=== PATIENT | female | born 1990 | race Two or more races ===

== ENCOUNTER 2017-05-24 13:16 | Emergency (ER) | payer OTHER ==
[~2017-05-24] VITALS: Ht 154.9 cm; Wt 71.7 kg
[2017-05-24 13:39] VITALS: BP 111/63
--- NOTE | 2017-05-24 14:47 | Emergency Room Report ---
History of Present Illness General Chief Complaint: Back Injury Source: Patient Present Illness HPI 27-year-old female presents to the emergency department complaining of 7/10 in severity upper and lower back pain x2 days. Patient states that on Thursday she had mechanical trip and fall while at work when she was walking down some stairs carrying a tray. Patient states that she hit her back on several the stairs and slid down none. Patient denies hitting her head or loss of consciousness. Patient reports that initially she felt fine other than minimal soreness, however upon awakening the next morning her muscles were very tight/ stiff. Patient reports tenderness but denies bruising. Denies numbness tingling or loss of sensation or gross motor movements of the extremities, incontinence of bowel or bladder. Denies CP, Palpitations, LOC, AMS, dizziness, Changes in Vision, Sensation, paresthesias, or a sudden severe headache. Allergies: Coded Allergies: No Known Allergies (Unverified , 05/24/17) Patient History Past Medical History: see triage record Past Surgical History: none Pertinent Family History: none Last Menstrual Period: 04/26/17 Now: No Immunizations: UTD Reviewed Nursing Documentation: PMH: Agreed, PSxH: Agreed Nursing Documentation-PMH Past Medical History: No Stated History Review of Systems All Other Systems: negative except mentioned in HPI Physical Exam Vital Signs Date Time Temp Pulse Resp B/P (MAP) Pulse Ox O2 Delivery O2 Flow Rate FiO2 05/24/17 13:29 98.1 60 18 111/63 99 Room Air Sp02 EP Interpretation: reviewed, normal General Appearance: no apparent distress, alert, GCS 15, non-toxic Head: normocephalic, atraumatic Eyes: bilateral eye normal inspection, bilateral eye PERRL ENT: hearing grossly normal, normal voice Neck: full range of motion, no bony tend Respiratory: chest non-tender, lungs clear, normal breath sounds, speaking full sentences Cardiovascular #1: regular rate, rhythm Rectal: deferred Musculoskeletal: back normal, gait/station normal, normal range of motion, tender - Generalized TTP to the thoracic and Lumbar back surface area, no bruising no appreciable localized midline spinal ttp, no obvious deformities. FROM. Neurologic: alert, oriented x3, responsive, motor strength/tone normal, sensory intact, normal gait, speech normal Skin: normal color, no rash, warm/dry, well hydrated, other - no bruising Medical Decision Making PA Attestation Dr. Hawthorne is my supervising Physician whom patient management has been discussed with. Diagnostic Impression: Primary Impression: Contusion of lower back Qualified Codes: S30.0XXA - Contusion of lower back and pelvis, initial encounter Additional Impressions: Contusion of mid back Qualified Codes: S20.229A - Contusion of unspecified back wall of thorax, initial encounter Muscle spasm of back ER Course 27-year-old female presents to the emergency department complaining of 7/10 in severity upper and lower back pain x2 days. Patient states that on Thursday she had mechanical trip and fall while at work when she was walking down some stairs carrying a tray. Patient states that she hit her back on several the stairs and slid down none. Patient denies hitting her head or loss of consciousness. Patient reports that initially she felt fine other than minimal soreness, however upon awakening the next morning her muscles were very tight/ stiff. Patient reports tenderness but denies bruising. Denies numbness tingling or loss of sensation or gross motor movements of the extremities, incontinence of bowel or bladder. Denies CP, Palpitations, LOC, AMS, dizziness, Changes in Vision, Sensation, paresthesias, or a sudden severe headache. Ddx considered but are not limited to Fracture, dislocation, contusion, Sprain/ Strain/Spasm just to name a few. Vital signs: are WNL, pt. is afebrile H&PE are most consistent with contusion of the upper and lower back with muscle spasm . no localized bony ttp to suggest fractures. ORDERS: none required at this time. ED INTERVENTIONS: -IBU PO d/w pt. conservative treatment, and to follow up with a primary care provider. pt given a list of primary care clinics for follow up. d/w pt. to return to the ED with worsening or new symptoms. DISCHARGE: At this time pt. is stable for d/c to home. Will provide printed patient care instructions, and any necessary prescriptions. Care plan and follow up instructions have been discussed with the patient prior to discharge. Last Vital Signs Date Time Temp Pulse Resp B/P (MAP) Pulse Ox O2 Delivery O2 Flow Rate FiO2 05/24/17 13:39 98.1 18 111/63 99 Room Air 05/24/17 13:29 60 Disposition: HOME, SELF-CARE Condition: Stable Scripts Ibuprofen* (MOTRIN*) 400 Mg Tablet 400 MG ORAL THREE TIMES A DAY, #20 TAB 0 Refills Prov: Megan Vora 05/24/17 Lidocaine (Lidoderm) 1 Each Adh..patch 1 PATCH TOPIC DAILY, #20 PATCH 0 Refills Patch(es) may remain in place for up to 12 hours in any 24-hour period. Prov: Megan Vora 05/24/17 Methocarbamol* (ROBAXIN-750*) 750 Mg Tablet 750 MG PO TID for 7 Days, #30 TAB 0 Refills Prov: Megan Vora 05/24/17 Carisoprodol* (SOMA*) 350 Mg Tablet 350 MG PO ONCE, #1 TAB Prov: Megan Vora 05/24/17 Referrals: NOT CHOSEN IPA/MD,REFERRING (PCP) Departure Forms: Return to Work Return to Work Date: May 28, 2017 Work Restrictions: No Heavy Lifting, No Prolonged Standing Other Restrictions: no pronlonged sitting, allow frequent breaks/position changes. Return to Full Activity: Jun 04, 2017 Patient Instructions: Back Pain, Adult, Contusion, [id number] Additional Instructions: Take medications as directed. - Do not take robaxin and soma in the same 6 hour period. start robaxin the morning after taking your one dose of Soma. Follow up with a Primary Care Provider in 3-5 days, even if your symptoms have resolved. --Please review list of primary care clinics, if you do not already have a primary care provider Return sooner to ED if new symptoms occur, or current symptoms become worse. Do not drink alcohol, drive, or operate heavy machinery while taking Muscle Relaxer as this may cause drowsiness. - Please note that this Emergency Department Report was dictated using [employer] saw operator technology software, occasionally this can lead to erroneous entry secondary to interpretation by the dictation equipment. Megan Vora May 24, 2017 14:47
[2017-05-24] MEDS ORDERED: IBUPROFEN400 MG ORAL (14:48)
[2017-05-24] MEDS ORDERED: LIDODERM700 M1 TOPIC (14:48)
[2017-05-24] MEDS ORDERED: SOMA350 MG PO (14:48)
[2017-05-24] MEDS ORDERED: ROBAXIN-750750 MG PO (14:48)
[2017-05-24 15:14] VITALS: BP 107/62
== END 2017-05-24 15:16 | disposition home or self-care (01) ==
LOC: EMR 13:50
DX: S30.0XXA Contusion of lower back and pelvis, initial encounter (principal); S20.229A Contusion of unspecified back wall of thorax, initial encounter; M62.830 Muscle spasm of back; W10.9XXA Fall (on) (from) unspecified stairs and steps, initial encounter; Y92.511 Restaurant or cafe as the place of occurrence of the external cause; Y99.0 Civilian activity done for income or pay
CPT/HCPCS: 99284